=== PATIENT | female | born 2000 | race African-American/Black ===

== ENCOUNTER 2020-08-29 04:58 | Inpatient (IN) | payer MEDICAID, SELFPAY ==
[~2020-08-29] VITALS: Ht 177.8 cm; Wt 59.9 kg
[2020-08-29 05:10] VITALS: BP_SYST 125
[2020-08-29] MEDS ORDERED: NACL 0.9% 1,000 ML IV ONE (05:31)
[2020-08-29] MEDS ORDERED: MORPHINE 4 MG/ML INJ. SYRINGE IVP ONE ×3 (05:45→11:00)
[2020-08-29] MEDS ORDERED: DIPHENHYDRAMINE INJ 50 MG/ML VIAL IVP ONE (05:45)
[2020-08-29] MEDS ORDERED: ONDANSETRON HCL 4 MG/2 ML VIAL IVP ONE ×2 (05:45→11:00)
[2020-08-29 05:57] LABS: HEMATOCRIT 36.1 % (36-48); HEMOGLOBIN 11.9 g/dL (12.0-16.0); MEAN CORPUSCULAR HEMOGLOBIN 27 pg (27-31); MEAN CORPUSCULAR HGB CONC 33 % (32-36); MEAN CORPUSCULAR VOLUME 81 fL (79.0-98.0); PLATELET COUNT (AUTO) 287 K/uL (130-430); RED BLOOD CELL COUNT(AUTO) 4.48 MIL/uL (4.2-6.2); RED CELL DISTRIBUTION WIDTH 12.9 % (9.0-15.0); WHITE BLOOD COUNT (AUTO) 15.8 K/uL (4.8-10.8)
[2020-08-29 06:10] LABS: CALCIUM 8.8 mg/dL (8.4-11.0); CREATININE 0.74 mg/dL (0.55-1.30); POTASSIUM 3.4 mmol/L (3.5-5.1)
[2020-08-29 06:12] LABS: ATYPICAL LYMPHOCYTES % 2 % (0-0); BAND % (MANUAL) 1 % (0-6); BASOPHILS % (MANUAL) 0 % (0-2); EOSINOPHILS % (MANUAL) 0 % (0-7); LYMPHOCYTES % (MANUAL) 7 % (20-46); MONOCYTES % (MANUAL) 10 % (0-11)
[2020-08-29 06:15] LABS: ALBUMIN 2.8 g/dL (3.4-4.8); TOTAL BILIRUBIN 0.3 mg/dL (0.0-1.0)
[2020-08-29] MEDS ORDERED: PIPERACILLIN/TAZO 3.375 GM in NS 50 ML IV ONE (08:30)
[2020-08-29] MEDS ORDERED: PIPERACILLIN/TAZOBACTAM 3.375 GM/VIAL (ZOSYN) IV ONE (08:46)
[2020-08-29] MEDS ORDERED: LORazepam 2 MG/ML VIAL IVP ONE (09:15)
[2020-08-29 11:24] VITALS: BP_SYST 133
[2020-08-29 12:36] VITALS: BP_SYST 119
[2020-08-29] MEDS ORDERED: ONDANSETRON HCL 4 MG/2 ML VIAL IVP PRN ×2 (13:00→22:00)
[2020-08-29 14:55] LABS: BILIRUBIN,URINE NEGATIVE (NEGATIVE); BLOOD, URINE NEGATIVE (NEGATIVE); CLARITY/URINE CLEAR (CLEAR); COLOR,URINE YELLOW (YELLOW); GLUCOSE,URINE NEGATIVE (NEGATIVE); KETONES,URINE 2+ (NEGATIVE); LEUKOCYTE ESTERASE ,URINE NEGATIVE (NEGATIVE); NITRITE, URINE NEGATIVE (NEGATIVE); PH,URINE 6.5 (5.0-8.0); PROTEIN URINE TRACE (NEGATIVE); UROBILINOGEN,URINE 0.2 (0.2-1.0)
[2020-08-29 15:29] LABS: RBC,URINE 0-3 /HPF (0-3); WBC,URINE 0-3 /HPF (0-3)
[2020-08-29 15:30] LABS: BACTERIA,URINE None Seen /HPF (None Seen)
[2020-08-29] MEDS: MORPHINE 4 MG/ML INJ. SYRINGE IVP PRN ×2 (15:40→19:48)
[2020-08-29 16:46] VITALS: BP_SYST 142
[2020-08-29] MEDS ORDERED: LR 1,000 ML IV SCH ×2 (19:30→21:56)
[2020-08-29 20:00] VITALS: BP_SYST 131
[2020-08-29] MEDS ORDERED: KETOROLAC TROMETHAMINE 30 MG VIAL IVP PRN (22:00)
[2020-08-29] MEDS ORDERED: MEPERIDINE HCL/PF 25 MG/ML DISP.SYRIN IVP PRN (22:00)
[2020-08-29] MEDS ORDERED: HYDROmorphone 1 MG INJ. 1 MG/ML AMPUL IVP PRN (22:00)
[2020-08-29 22:10] VITALS: BP_SYST 142
[2020-08-29] MEDS ORDERED: ONDANSETRON HCL 4 MG/2 ML VIAL ONE (23:14)
[2020-08-29] MEDS ORDERED: GLYCOPYRROLATE 0.2 MG/ML VIAL ONE (23:14)
[2020-08-29] MEDS ORDERED: MIDAZOLAM HCL 5 MG/ML VIAL (VERSED) IV ONE (23:14)
[2020-08-29] MEDS ORDERED: NS 1000 ML IV.SOLN IV ONE (23:14)
[2020-08-29] MEDS ORDERED: PROPOFOL 200MG/ 20ML VIAL (DIPRIVAN) IV ONE (23:14)
[2020-08-29] MEDS ORDERED: SUCCINYLCHOLINE CHLORIDE 20 MG/ML(QUELICIN) ONE (23:14)
[2020-08-29] MEDS ORDERED: NS IRRIG SOLN 1000 ML IR ONE (23:14)
[2020-08-29] MEDS ORDERED: SEVOFLURANE 15 MIN GAS INH ONE (23:14)
[2020-08-29] MEDS ORDERED: CEFAZOLIN 1 GM IVPB PREMIX 50 ML IV ONE (23:14)
[2020-08-29] MEDS ORDERED: DEXAMETHASONE SOD PHOSPHATE 4 MG/ML VIAL ONE (23:14)
[2020-08-29] MEDS ORDERED: NEOSTIGMINE METHYLSULFATE 1 MG/ML, 10 ML VIAL ONE (23:14)
[2020-08-29] MEDS ORDERED: fentaNYL CITRATE/PF 100 MCG/2 ML AMP ONE (23:14)
[2020-08-29] MEDS ORDERED: BUPIVACAINE /PF 0.25% 30 ML VIAL INJ ONE (23:14)
[2020-08-29] MEDS ORDERED: KETOROLAC TROMETHAMINE 30 MG VIAL ONE (23:14)
[2020-08-29] MEDS ORDERED: ROCURONIUM BROMIDE 10 MG/ML (ZEMURON) ONE (23:14)
[2020-08-29] MEDS ORDERED: METOCLOPRAMIDE HCL 10 MG/2 ML VIAL ONE (23:14)
[2020-08-30] VITALS: BP_SYST 131
[2020-08-30] MEDS: PIPERACILLIN/TAZO 3.375/DEX-IS 50 ML IV SCH ×4 (00:43→17:12)
[2020-08-30] MEDS ORDERED: metroNIDAZOLE 500 mg/NS 100 ML IV ONE (00:51)
[2020-08-30] MEDS ORDERED: PIPERACILLIN/TAZOBACTAM 3.375 GM/VIAL (ZOSYN) IV ONE (00:51)
[2020-08-30] MEDS: MORPHINE 4 MG/ML INJ. SYRINGE IVP PRN ×5 (04:18→22:13)
[2020-08-30] MEDS: metroNIDAZOLE 250 mg/NS 50 ML IV SCH ×3 (06:00→22:12)
[2020-08-30 06:27] LABS: BASOPHILS % (AUTO) 0.3 % (0.0-2.0); HEMATOCRIT 32.5 % (36-48); HEMOGLOBIN 10.6 g/dL (12.0-16.0); LYMPHOCYTES # (AUTO) 0.8 K/uL (1.0-5.5); LYMPHOCYTES % (AUTO) 5.9 % (20.5-51.5); MEAN CORPUSCULAR HEMOGLOBIN 26 pg (27-31); MEAN CORPUSCULAR HGB CONC 33 % (32-36); MEAN CORPUSCULAR VOLUME 81 fL (79.0-98.0); MONOCYTES # (AUTO) 1.3 K/uL (0.0-1.0); MONOCYTES % (AUTO) 9.9 % (1.7-9.3); NEUTROPHILS # (AUTO) 11.2 K/uL (1.8-7.7); NEUTROPHILS % (AUTO) 83.9 % (40.0-70.0); PLATELET COUNT (AUTO) 293 K/uL (130-430); RED BLOOD CELL COUNT(AUTO) 4.03 MIL/uL (4.2-6.2); RED CELL DISTRIBUTION WIDTH 12.7 % (9.0-15.0); WHITE BLOOD COUNT (AUTO) 13.3 K/uL (4.8-10.8)
[2020-08-30 06:53] LABS: ALBUMIN 2.2 g/dL (3.4-4.8); CALCIUM 8.3 mg/dL (8.4-11.0); CREATININE 0.65 mg/dL (0.55-1.30); TOTAL BILIRUBIN 0.2 mg/dL (0.0-1.0)
[2020-08-30 08:00] VITALS: BP_SYST 138
[2020-08-30 12:00] VITALS: BP_SYST 120
[2020-08-30 16:00] VITALS: BP_SYST 123
[2020-08-30 20:00] VITALS: BP_SYST 112
[2020-08-31] VITALS: BP_SYST 116
[2020-08-31] MEDS: PIPERACILLIN/TAZO 3.375/DEX-IS 50 ML IV SCH ×3 (00:36→16:50)
[2020-08-31] MEDS: MORPHINE 4 MG/ML INJ. SYRINGE IVP PRN ×3 (02:20→20:45)
[2020-08-31 08:27] VITALS: BP_SYST 121
[2020-08-31] MEDS: metroNIDAZOLE 250 mg/NS 50 ML IV SCH ×3 (14:00→20:45)
[2020-08-31] MEDS ORDERED: traMADol HCL HCL 50 MG TABLET (ULTRAM) PO PRN (16:15)
[2020-08-31] MEDS ORDERED: ACETAMINOPHEN 325 MG TABLET PO PRN (16:15)
[2020-08-31 20:00] VITALS: BP_SYST 124
[2020-09-01] VITALS: BP_SYST 120
[2020-09-01] MEDS: PIPERACILLIN/TAZO 3.375/DEX-IS 50 ML IV SCH ×3 (00:14→11:17)
[2020-09-01] MEDS: MORPHINE 4 MG/ML INJ. SYRINGE IVP PRN ×2 (04:27→12:48)
[2020-09-01] MEDS: metroNIDAZOLE 250 mg/NS 50 ML IV SCH ×2 (05:50→13:25)
[2020-09-01 07:12] LABS: BASOPHILS % (AUTO) 0.5 % (0.0-2.0); EOSINOPHILS # (AUTO) 0.2 K/uL (0.0-0.4); EOSINOPHILS % (AUTO) 2.4 % (0.0-4.0); HEMATOCRIT 30.8 % (36-48); HEMOGLOBIN 10.2 g/dL (12.0-16.0); LYMPHOCYTES # (AUTO) 1.3 K/uL (1.0-5.5); LYMPHOCYTES % (AUTO) 19.6 % (20.5-51.5); MEAN CORPUSCULAR HEMOGLOBIN 27 pg (27-31); MEAN CORPUSCULAR HGB CONC 33 % (32-36); MEAN CORPUSCULAR VOLUME 81 fL (79.0-98.0); MONOCYTES # (AUTO) 0.6 K/uL (0.0-1.0); MONOCYTES % (AUTO) 8.6 % (1.7-9.3); NEUTROPHILS # (AUTO) 4.6 K/uL (1.8-7.7); NEUTROPHILS % (AUTO) 68.9 % (40.0-70.0); PLATELET COUNT (AUTO) 329 K/uL (130-430); RED BLOOD CELL COUNT(AUTO) 3.79 MIL/uL (4.2-6.2); RED CELL DISTRIBUTION WIDTH 12.7 % (9.0-15.0); WHITE BLOOD COUNT (AUTO) 6.7 K/uL (4.8-10.8)
[2020-09-01 08:00] VITALS: BP_SYST 132
[2020-09-01 12:13] VITALS: BP_SYST 108
[2020-09-01 15:56] VITALS: BP_SYST 131
[2020-09-01 16:33] VITALS: BP_SYST 131
== END 2020-09-01 17:00 | disposition home or self-care (01) | DRG 233 ==
LOC: SED 04:58 → SMU 10:41
PROVIDERS: ADMIT Surgery; ATTEND Surgery
PROC: 0D9J4ZZ Drainage of Appendix, Percutaneous Endoscopic Approach (ICD-10-PCS; 2020-08-29)
PROC: 0DTJ4ZZ Resection of Appendix, Percutaneous Endoscopic Approach (ICD-10-PCS; principal; 2020-08-29 21:00)
DX: K35.33 Acute appendicitis with perforation, localized peritonitis, and gangrene, with abscess (principal); R65.10 Systemic inflammatory response syndrome (SIRS) of non-infectious origin without acute organ dysfunction; E44.0 Moderate protein-calorie malnutrition; E86.0 Dehydration; K59.00 Constipation, unspecified; K38.1 Appendicular concretions; F12.90 Cannabis use, unspecified, uncomplicated; Z20.828 Contact with and (suspected) exposure to other viral communicable diseases; Z68.1 Body mass index [BMI] 19.9 or less, adult; Z83.79 Family history of other diseases of the digestive system
CPT/HCPCS: 36415; 80053; 81000-TC; 83605; 84703; 85007; 85025; 85027; 87040-TC; 87081; 88304; 94010; 96365; 96375; 96376; 99285; C1727; J0330; J0690; J1100; J1200; J1885; J2060; J2250; J2270; J2405; J2543; J2704; J2710; J2765; J3010; J3490; J7030; J7060; J7120; Q9967

== ENCOUNTER 2020-09-01 23:38 | Emergency (ER) | payer MEDICAID, SELFPAY ==
[~2020-09-01] VITALS: Ht 177.8 cm; Wt 61.7 kg
[2020-09-02 00:02] VITALS: BP_SYST 108
[2020-09-02] MEDS ORDERED: NACL 0.9% 1,000 ML IV ONE (00:15)
[2020-09-02] MEDS ORDERED: MORPHINE 4 MG/ML INJ. SYRINGE IVP ONE (00:15)
[2020-09-02] MEDS ORDERED: ONDANSETRON HCL 4 MG/2 ML VIAL IVP ONE (00:15)
[2020-09-02] MEDS: ONDANSETRON 4 MG ODT TAB PO ONE (00:35)
[2020-09-02 00:48] LABS: EOSINOPHILS # (AUTO) 0.2 K/uL (0.0-0.4); WHITE BLOOD COUNT (AUTO) 9.9 K/uL (4.8-10.8)
[2020-09-02 00:52] LABS: BASOPHILS % (AUTO) 0.4 % (0.0-2.0); EOSINOPHILS % (AUTO) 1.7 % (0.0-4.0); HEMATOCRIT 36.1 % (36-48); LYMPHOCYTES # (AUTO) 1.8 K/uL (1.0-5.5); LYMPHOCYTES % (AUTO) 17.8 % (20.5-51.5); MEAN CORPUSCULAR HEMOGLOBIN 27 pg (27-31); MEAN CORPUSCULAR HGB CONC 33 % (32-36); MEAN CORPUSCULAR VOLUME 81 fL (79.0-98.0); MONOCYTES # (AUTO) 0.7 K/uL (0.0-1.0); MONOCYTES % (AUTO) 7.2 % (1.7-9.3); NEUTROPHILS # (AUTO) 7.2 K/uL (1.8-7.7); NEUTROPHILS % (AUTO) 72.9 % (40.0-70.0); PLATELET COUNT (AUTO) 469 K/uL (130-430); RED BLOOD CELL COUNT(AUTO) 4.44 MIL/uL (4.2-6.2); RED CELL DISTRIBUTION WIDTH 12.9 % (9.0-15.0)
[2020-09-02] MEDS: cefTRIAXone 1 GM VIAL IM ONE (01:14)
[2020-09-02 01:15] VITALS: BP_SYST 112
== END 2020-09-02 01:15 | disposition home or self-care (01) ==
LOC: SED 23:38
DX: M25.552 Pain in left hip (principal); F12.90 Cannabis use, unspecified, uncomplicated; Z71.6 Tobacco abuse counseling
CPT/HCPCS: 36415; 85025; 96372; 99283; J0696; Q0162; Q9967